=== PATIENT | female | born 1945 | race Caucasian/White ===

== ENCOUNTER 2024-01-29 19:08 | Inpatient (IN) | payer OTHER, BC ==
[2024-01-29] MEDS ORDERED: METOPROLOL TARTRATE 5 MG/5 ML VIAL ONE (20:27)
[2024-01-29] MEDS: METOPROLOL TARTRATE 5 MG/5 ML VIAL IVPUSH ONE (20:38)
[2024-01-29 21:20] LABS: VENOUS BASE EXCESS 0.4 mmol/L (-2-2); VENOUS O2 SATURATION 39.2 % (70-80); VENOUS PCO2 45.7 mmHg (38-52); VENOUS PH 7.375 (7.310-7.410)
[2024-01-29 21:24] LABS: BASO % 0.3 % (0-2.0); EOS % 0.1 % (0-4.5); HEMATOCRIT 43.4 % (32.4-45.2); HEMOGLOBIN 14.5 GM/dL (10.7-15.3); LYMPH % 9.3 % (8-40); MCH 29.4 pg (25.7-33.7); MCHC 33.3 g/dl (32.0-36.0); MEAN CELL VOLUME 88.2 fl (80-96); MEAN PLT VOLUME 8.9 fl (7.5-11.1); MONO % 6.1 % (3.8-10.2); NEUT % 84.2 % (42.8-82.8); PLATELET COUNT 227 10^3/uL (134-434); RBC 4.92 M/mm3 (3.60-5.2); RDW 13.5 % (11.6-15.6); WHITE BLOOD COUNT 10.5 K/mm3 (4.0-10.0)
[2024-01-29 21:32] LABS: INR 1.13 (0.83-1.09); PROTHROMBIN TIME (PATIENT) 12.9 SEC (9.7-13.0)
[2024-01-29 21:35] LABS: ACTIVATED PTT 31.2 SECONDS (25.2-36.5)
[2024-01-29 21:46] LABS: MAGNESIUM 1.9 mg/dL (1.8-2.4)
[2024-01-29 21:48] LABS: POTASSIUM 3.5 mmol/L (3.5-5.1)
[2024-01-29 21:50] LABS: ALBUMIN 3.9 g/dl (3.4-5.0); BLOOD UREA NITROGEN 30.8 mg/dL (7-18); CALCIUM 9.4 mg/dL (8.5-10.1)
[2024-01-29 21:53] LABS: CREATININE 1.5 mg/dL (0.55-1.3)
[2024-01-29 21:55] LABS: BILIRUBIN,TOTAL 0.6 mg/dL (0.2-1); N-TERMINAL BNP 5853.1 pg/ml (5-450); TOT PROT 7.2 g/dl (6.4-8.2)
[2024-01-29] MEDS ORDERED: FUROSEMIDE 40 MG/4 ML INJECTABLE VIAL ONE (22:28)
[2024-01-29] MEDS: FUROSEMIDE 40 MG/4 ML INJECTABLE VIAL IVPUSH ONE (22:44)
[2024-01-29] MEDS ORDERED: METOPROLOL TARTRATE 25 MG TABLET (FP) ONE (23:50)
[2024-01-29] MEDS: METOPROLOL TARTRATE 25 MG TABLET (FP) PO ONE (23:56)
[2024-01-30] MEDS ORDERED: HEPARIN NA (PORCINE) 5,000 UNITS/ML 1ML VIAL IVPUSH PRN (00:54)
[2024-01-30] MEDS: METOPROLOL TARTRATE 50 MG TABLET (FP) PO SCH ×2 (00:57→09:36)
[2024-01-30] MEDS ORDERED: HEPARIN INFUSION - 25,000 UNITS/500 ML INFUS.BAG IVPB ONE (01:07)
[2024-01-30] MEDS ORDERED: HEPARIN NA (PORCINE) 5,000 UNITS/ML 1ML VIAL ONE (01:46)
[2024-01-30] MEDS: HEPARIN SOD,PORK IN 0.45% NACL 25,000 UNITS/500 ML INFUS.BAG IVPB SCH (02:15)
[2024-01-30] MEDS: HEPARIN NA (PORCINE) 5,000 UNITS/ML 1ML VIAL IVPUSH PRN (02:16)
[2024-01-30] MEDS: FUROSEMIDE 40 MG/4 ML INJECTABLE VIAL IVPUSH SCH ×2 (06:01→15:18)
[2024-01-30] MEDS: amLODIPine BESYLATE 10 MG TABLET (FP) PO SCH (09:36)
[2024-01-30] MEDS ORDERED: FUROSEMIDE 40 MG/4 ML INJECTABLE VIAL IVPUSH SCH (18:00)
[2024-01-30] MEDS: APIXABAN 5 MG TABLET PO SCH (22:08)
[2024-01-30] MEDS: ATORVASTATIN CA 20 MG TABLET (FP) PO SCH (22:09)
[2024-01-31 08:40] LABS: BASO % 1.1 % (0-2.0); EOS % 1.2 % (0-4.5); HEMATOCRIT 41.5 % (32.4-45.2); HEMOGLOBIN 13.8 GM/dL (10.7-15.3); LYMPH % 19.8 % (8-40); MCH 29.6 pg (25.7-33.7); MCHC 33.3 g/dl (32.0-36.0); MEAN CELL VOLUME 88.9 fl (80-96); MEAN PLT VOLUME 9.2 fl (7.5-11.1); MONO % 6.8 % (3.8-10.2); NEUT % 71.1 % (42.8-82.8); PLATELET COUNT 193 10^3/uL (134-434); RBC 4.66 M/mm3 (3.60-5.2); RDW 13.1 % (11.6-15.6); WHITE BLOOD COUNT 7.6 K/mm3 (4.0-10.0)
[2024-01-31 08:46] LABS: POTASSIUM 3.1 mmol/L (3.5-5.1)
[2024-01-31 08:54] LABS: ALBUMIN 3.2 g/dl (3.4-5.0); BLOOD UREA NITROGEN 32.6 mg/dL (7-18); CALCIUM 8.9 mg/dL (8.5-10.1)
[2024-01-31 08:57] LABS: CREATININE 1.3 mg/dL (0.55-1.3)
[2024-01-31 08:59] LABS: BILIRUBIN,TOTAL 0.6 mg/dL (0.2-1); TOT PROT 6.3 g/dl (6.4-8.2)
[2024-01-31] MEDS: POTASSIUM CHLORIDE ORAL LIQUID 20 MEQ/15 ML PO ONE (13:30)
[2024-01-31 15:18] VITALS: BMI 39.6
[2024-01-31] MEDS: DIGOXIN 0.25 MG TABLET PO ONE (15:19)
[2024-02-01] MEDS ORDERED: AMMONIUM LACTATE 12% LOTION 225 GM BOTTLE TP PRN (08:53)
[2024-02-01 09:31] LABS: BASO % 1.1 % (0-2.0); EOS % 1.6 % (0-4.5); HEMATOCRIT 41.8 % (32.4-45.2); HEMOGLOBIN 14.4 GM/dL (10.7-15.3); LYMPH % 24.1 % (8-40); MCH 30.3 pg (25.7-33.7); MCHC 34.4 g/dl (32.0-36.0); MEAN CELL VOLUME 87.8 fl (80-96); MEAN PLT VOLUME 9.4 fl (7.5-11.1); MONO % 7.9 % (3.8-10.2); NEUT % 65.3 % (42.8-82.8); PLATELET COUNT 224 10^3/uL (134-434); RBC 4.76 M/mm3 (3.60-5.2); RDW 13.2 % (11.6-15.6); WHITE BLOOD COUNT 8.3 K/mm3 (4.0-10.0)
[2024-02-01 09:51] LABS: POTASSIUM 3.6 mmol/L (3.5-5.1)
[2024-02-01 10:08] LABS: ALBUMIN 3.3 g/dl (3.4-5.0); BLOOD UREA NITROGEN 34.6 mg/dL (7-18)
[2024-02-01 10:10] LABS: CREATININE 1.2 mg/dL (0.55-1.3)
[2024-02-01 10:11] LABS: TOT PROT 6.4 g/dl (6.4-8.2)
[2024-02-01 10:14] LABS: BILIRUBIN,TOTAL 0.7 mg/dL (0.2-1)
[2024-02-01] MEDS: DIGOXIN 0.125 MG TABLET PO SCH (10:33)
[2024-02-02 09:03] LABS: EOS % 1.9 % (0-4.5); HEMATOCRIT 41.6 % (32.4-45.2); LYMPH % 20.6 % (8-40); MCH 29.5 pg (25.7-33.7); MCHC 33.6 g/dl (32.0-36.0); MEAN CELL VOLUME 87.8 fl (80-96); MEAN PLT VOLUME 9.3 fl (7.5-11.1); MONO % 7.2 % (3.8-10.2); NEUT % 69.3 % (42.8-82.8); PLATELET COUNT 223 10^3/uL (134-434); RBC 4.73 M/mm3 (3.60-5.2); RDW 13.3 % (11.6-15.6); WHITE BLOOD COUNT 8.1 K/mm3 (4.0-10.0)
[2024-02-02 09:21] LABS: POTASSIUM 3.8 mmol/L (3.5-5.1)
[2024-02-02 09:24] LABS: ALBUMIN 3.1 g/dl (3.4-5.0); BLOOD UREA NITROGEN 31.4 mg/dL (7-18)
[2024-02-02 09:26] LABS: CALCIUM 8.6 mg/dL (8.5-10.1)
[2024-02-02 09:28] LABS: CREATININE 1.1 mg/dL (0.55-1.3)
[2024-02-02 09:29] LABS: BILIRUBIN,TOTAL 0.7 mg/dL (0.2-1)
[2024-02-04 19:10] VITALS: RESP 18
[2024-02-05 00:02] VITALS: BP 109/82; PULSE 91; TEMP 98.6
== END 2024-02-05 01:00 | DRG 189 ==
LOC: JER 19:08 → JERBED 01-30 00:53 → INTOOBSV 01-30 00:56 → JERBED 01-30 00:56 → OBSVTOIN 01-30 00:56 → UNDOADMOB 01-30 00:56 → JERBED 01-30 03:00 → J4S 01-30 03:00
PROVIDERS: ADMIT Internal Medicine; ATTEND Internal Medicine
PROC: 0HBRXZZ Excision of Toe Nail, External Approach (ICD-10-PCS; principal; 2024-02-01)
PROC: 0HBRXZZ Excision of Toe Nail, External Approach (ICD-10-PCS; 2024-02-01)
PROC: 0HBRXZZ Excision of Toe Nail, External Approach (ICD-10-PCS; 2024-02-01)
PROC: 0HBRXZZ Excision of Toe Nail, External Approach (ICD-10-PCS; 2024-02-01)
PROC: 0HBRXZZ Excision of Toe Nail, External Approach (ICD-10-PCS; 2024-02-01)
PROC: 0HBRXZZ Excision of Toe Nail, External Approach (ICD-10-PCS; 2024-02-01)
PROC: 0HBRXZZ Excision of Toe Nail, External Approach (ICD-10-PCS; 2024-02-01)
PROC: 0HBRXZZ Excision of Toe Nail, External Approach (ICD-10-PCS; 2024-02-01)
PROC: 0HBRXZZ Excision of Toe Nail, External Approach (ICD-10-PCS; 2024-02-01)
PROC: 0HBRXZZ Excision of Toe Nail, External Approach (ICD-10-PCS; 2024-02-01)
DX: J96.01 Acute respiratory failure with hypoxia (principal); I50.31 Acute diastolic (congestive) heart failure; I26.99 Other pulmonary embolism without acute cor pulmonale; Z68.41 Body mass index [BMI] 40.0-44.9, adult; I48.19 Other persistent atrial fibrillation; I24.89 Other forms of acute ischemic heart disease; I82.4Z2 Acute embolism and thrombosis of unspecified deep veins of left distal lower extremity; I11.0 Hypertensive heart disease with heart failure; B35.1 Tinea unguium; E66.01 Morbid (severe) obesity due to excess calories; E78.00 Pure hypercholesterolemia, unspecified; K46.9 Unspecified abdominal hernia without obstruction or gangrene; E87.6 Hypokalemia; L85.3 Xerosis cutis; Z91.148 Patient's other noncompliance with medication regimen for other reason
CPT/HCPCS: 36415; 71045-TC-FY; 71275-TC; 80053; 82803; 83735; 83880; 84100; 84439; 84443; 84484; 85025; 85610; 85730; 93005; 93010; 93306-TC; 93970-TC; 94660; 97116-GP; 97161-GP; 99285-25; G0378; J1644; Q9967